=== PATIENT | female | born 1950 | race Caucasian/White ===

== ENCOUNTER 2020-03-06 21:39 | Emergency (ER) | payer MEDICARE ==
[~2020-03-06] VITALS: Ht 157.5 cm; Wt 85.0 kg
[2020-03-06] MEDS ORDERED: TETanus/Pertussis (Acell)/Diphther VAC/PF (Tdap-Adult) 0.5ml syringe IMVAC ONE (22:30)
[2020-03-06] MEDS ORDERED: amox tr/potassium clavulanate 875/125mg TAB PO ONE (23:05)
[2020-03-06] MEDS ORDERED: AMOX-580 PO (23:19)
[2020-03-06 23:25] VITALS: BP 123/73
== END 2020-03-06 23:26 | disposition home or self-care (01) ==
LOC: ER 21:39
DX: S61.432A Puncture wound without foreign body of left hand, initial encounter (principal); S61.431A Puncture wound without foreign body of right hand, initial encounter; S41.132A Puncture wound without foreign body of left upper arm, initial encounter; S41.131A Puncture wound without foreign body of right upper arm, initial encounter; S91.332A Puncture wound without foreign body, left foot, initial encounter; Z88.2 Allergy status to sulfonamides; Z88.0 Allergy status to penicillin; W55.01XA Bitten by cat, initial encounter; Y93.89 Activity, other specified; Y92.89 Other specified places as the place of occurrence of the external cause; Y99.9 Unspecified external cause status
CPT/HCPCS: 90471; 90715; 99283

== ENCOUNTER 2020-03-17 13:14 | Emergency (ER) | payer MEDICARE ==
[~2020-03-17] VITALS: Ht 157.5 cm; Wt 81.8 kg
[2020-03-17] MEDS ORDERED: acetaminophen 325mg tablet PO ONE (15:40)
[2020-03-17 15:55] VITALS: BP 107/55
== END 2020-03-17 15:58 | disposition home or self-care (01) ==
LOC: ER 13:18
DX: S06.0X0A Concussion without loss of consciousness, initial encounter (principal); S43.401A Unspecified sprain of right shoulder joint, initial encounter; S00.03XA Contusion of scalp, initial encounter; S16.1XXA Strain of muscle, fascia and tendon at neck level, initial encounter; T14.8XXA Other injury of unspecified body region, initial encounter; Z88.2 Allergy status to sulfonamides; Z88.0 Allergy status to penicillin; Z79.899 Other long term (current) drug therapy; W18.30XA Fall on same level, unspecified, initial encounter; Y93.89 Activity, other specified; Y92.89 Other specified places as the place of occurrence of the external cause; Y99.8 Other external cause status
CPT/HCPCS: 70450; 72125; 73030; 99285